=== PATIENT | male | born 1995 | race Two or more races ===

== ENCOUNTER 2017-05-06 17:25 | Emergency (ER) | payer SELFPAY ==
[~2017-05-06] VITALS: Ht 177.8 cm; Wt 81.6 kg
--- NOTE | 2017-05-06 19:05 | NUR ---
Report given to paper grader.
--- NOTE | 2017-05-06 19:06 | NUR ---
Received report from JARON Mays. Assumed care of pt at this time. Pt resting in position of comfort for self, awaiting xrays.
--- NOTE | 2017-05-06 19:22 | NUR ---
Pt to and from xray. Pt requesting pain medication. Dr. Quezada notified, awaiting further orders.
--- NOTE | 2017-05-06 19:35 | NUR ---
PATIENT REFUSED IM TORADOL. GETTING IM CAUSED PATIENT TO HAVE TO MUCH ANXIETY WOULD RATHER HAVE PO MEDS FOR PAIN. DR LEA INFORMED
--- NOTE | 2017-05-06 19:50 | NUR ---
PATIENT GAVE ACI. PATIENT UNDERSTOOD ACI. ANSWERED ALL QUESTION. PATIENT REFUSED PERCOCET RX AND REQUESTING RX OF NORCO 10MG. INFORMED DR LEA
--- NOTE | 2017-05-06 19:57 | NUR ---
Patient discharged to home in stable conditon WITH RX OF NORCO 10MG. Written and verbal after care instructions given. Patient verbalizes understanding of instructions. WALKED OUT OF ER WITH STERADY GAIT. NO DISTRESS NOTED
[2017-05-06 19:58] VITALS: BP 138/89
== END 2017-05-06 19:58 | disposition home or self-care (01) ==
LOC: ER 17:27
DX: S16.1XXA Strain of muscle, fascia and tendon at neck level, initial encounter (principal); V43.52XA Car driver injured in collision with other type car in traffic accident, initial encounter; Y93.89 Activity, other specified; Y92.413 State road as the place of occurrence of the external cause; Y99.9 Unspecified external cause status
CPT/HCPCS: 73030; A4663; J1885